=== PATIENT | female | born 1975 | race Caucasian/White ===

== ENCOUNTER 2017-12-25 12:19 | Emergency (ER) | payer OTHER ==
[~2017-12-25] VITALS: Ht 162.5 cm; Wt 68.0 kg
[~2017-12-25 12:19] MED LIST: ACIPHEX20 MG PO; ALBUTEROL0.09 MG/A2 IH; ASPIRIN PO; AUGMENTIN 875 M1 TA1 PO; BACTRIM DS 8001 TA1 PO; CEPHALEXIN500 MG PO; CHANTIX1 MG PO; CIPRO500 MG PO; CIPROFLOXACIN500 MG PO; COREG3.125 MG PO; CYCLOBENZAPRINE10 MG PO; DIFLUCAN150 MG PO; FAMILY PHARMAC0.4 MG PO; FLEXERIL10 MG PO; FLEXERIL5 MG PO; HYDROCODONE BIT1 T11 PO; IMDUR SA30 MG PO; K-Dur 20MEQ20 MEQ PO; KEFLEX500 MG PO; LEVEMIR100 U/ML SC; LEVOFLOXACIN500 MG PO; LOPRESSOR25 MG PO; MEDROL DOSEPAK4 MG PO; MOBIC15 MG PO; MOTRIN600 MG PO; MOTRIN800 MG PO; MULTIVITAMIN1 CTB PO; Metformin Hydr500 MG PO; NASCOBAL NAS; NEURONTIN300 MG PO; OMNICEF300 MG PO; PARAFON FORTE500 MG PO; PEN-VEE K500 MG PO; PEPCID20 MG PO; PERCOCET 325 MG1 TA2 PO; PERCOCET 325 MG1 TA3 PO; PERCOCET 325 MG1 TA7 PO; PLAVIX75 MG PO; PRAVACHOL80 MG PO; PREDNICOT10 MG PO; PREDNISONE20 MG PO; PYRIDIUM100 MG PO; PYRIDIUM200 MG PO; RANEXA1000 MG PO; ROBAXIN500 MG PO; TRAMADOL HCL50 MG PO; ULTRAM50 MG PO; URIBEL PO; VIBRAMYCIN100 MG PO; VICO10300 PO; VICODIN 5/500 505 MG PO; VICODIN HP 6601 TA1 PO; VOLTAREN50 M1 PO; ZOFRAN4 MG PO; ZOLOFT100 MG PO
[2017-12-25 12:26] VITALS: BP 116/66
[2017-12-25] MEDS ORDERED: Tobrex Ophth S2.5 ML OPH (12:41)
[2017-12-25] MEDS ORDERED: PREDNISONE10 MG PO (13:05)
== END 2017-12-25 14:24 | disposition home or self-care (01) ==
LOC: ED 12:19
DX: M25.561 Pain in right knee (principal); Z88.0 Allergy status to penicillin

== ENCOUNTER 2018-10-11 16:00 | Emergency (ER) | payer MEDICAID ==
[~2018-10-11] VITALS: Ht 162.5 cm; Wt 63.5 kg
[~2018-10-11 16:00] MED LIST changes: +PREDNISONE10 MG PO; +SEPTDS PO; +TYLENOL W/CODEI1 TA4 PO; +Tobrex Ophth S2.5 ML OPH
[2018-10-11 16:18] LABS: BASO % 0.4 % (0.0-1.0); EOS # 0.1 10*3/uL (0.0-0.4); EOS % 1.3 % (1.0-4.0); HEMATOCRIT 42.9 % (37.0-47.0); LYMPH # 2.3 10*3/uL (1.3-4.4); LYMPH % 20.4 % (27.0-41.0); MEAN CELL VOLUME 90.5 fl (81.0-99.0); MEAN CORPUSCULAR HGB 31.6 pg (27.0-31.0); MEAN PLATELET VOLUME 9.9 fl (9.6-12.3); MONO # 0.7 10*3/uL (0.1-1.0); NEUT # 7.9 10*3/uL (2.3-7.9); NEUT % 71.4 % (47.0-73.0); PLATELET COUNT AUTOMATED 269 10*3/uL (130-400); RED BLOOD COUNT 4.74 10*6/uL (4.10-5.10); RED CELL DISTRI WIDTH 12.9 % (0-14.5); WHITE BLOOD COUNT 11.1 10*3/uL (4.8-10.8)
[2018-10-11 16:36] LABS: ALBUMIN 3.8 gm/dl (3.1-4.5); ALKALINE PHOSPHATASE 63 U/L (45-117); BUN 5 mg/dl (7-24); CHLORIDE 107 mmol/L (98-107); CREATININE 0.79 mg/dL (0.55-1.02); POTASSIUM 3.4 mmol/L (3.5-5.1); SGOT/AST 14 IU/L (3-35); SGPT/ALT 28 U/L (12-78); SODIUM 141 mmol/L (136-145); TOTAL PROTEIN 7.2 gm/dL (6.4-8.2)
[2018-10-11 16:55] VITALS: BP 114/56
[2018-10-11 17:19] LABS: BILIRUBIN NEGATIVE (NEGATIVE); BLOOD NEGATIVE (NEGATIVE); CLARITY CLEAR (CLEAR); COLOR YELLOW (YELLOW); GLUCOSE NEGATIVE (NEGATIVE); KETONE NEGATIVE (NEGATIVE); LEUKO ESTERASE NEGATIVE (NEGATIVE); NITRITE NEGATIVE (NEGATIVE); SPECIFIC GRAVITY <= 1.005 (1.005-1.030); UROBILINOGEN 0.2 E.U./dl (0.2-1.0)
[2018-10-11 17:39] LABS: BACTERIA 2+
[2018-10-11 17:40] LABS: RBC 0-2 rbc/hpf (0-2)
== END 2018-10-11 17:53 | disposition home or self-care (01) ==
LOC: ED 16:00
PROVIDERS: Nurse Practitioner Family
DX: R10.9 Unspecified abdominal pain (principal); R03.0 Elevated blood-pressure reading, without diagnosis of hypertension; R11.0 Nausea; Z88.0 Allergy status to penicillin; Z87.442 Personal history of urinary calculi

== ENCOUNTER 2021-01-09 12:02 | Observation (INO) | payer SELFPAY ==
[~2021-01-09] VITALS: Ht 162.6 cm; Wt 72.6 kg
[2021-01-09 12:07] VITALS: BP 150/78
[2021-01-09 12:54] LABS: BASO % 0.3 % (0.0-1.0); EOS # 0.2 10*3/uL (0.0-0.4); EOS % 1.5 % (1.0-4.0); HEMATOCRIT 45.7 % (37.0-47.0); LYMPH # 1.5 10*3/uL (1.3-4.4); LYMPH % 14.5 % (27.0-41.0); MEAN CORPUSCULAR HGB 31.5 pg (27.0-31.0); MEAN CORPUSCULAR HGB CONC 34.6 g/dl (33.0-37.0); MEAN PLATELET VOLUME 10.4 fl (9.6-12.3); MONO # 0.5 10*3/uL (0.1-1.0); MONO % 4.9 % (3.0-9.0); NEUT # 7.9 10*3/uL (2.3-7.9); NEUT % 78.3 % (47.0-73.0); PLATELET COUNT AUTOMATED 294 10*3/uL (130-400); RED BLOOD COUNT 5.02 10*6/uL (4.10-5.10); RED CELL DISTRI WIDTH 12.5 % (0-14.5); WHITE BLOOD COUNT 10.1 10*3/uL (4.8-10.8)
[2021-01-09 13:10] LABS: ALBUMIN 3.8 gm/dl (3.1-4.5); ALKALINE PHOSPHATASE 95 U/L (45-117); BUN 5 mg/dl (7-24); CHLORIDE 111 mmol/L (98-107); CREATININE 0.79 mg/dL (0.55-1.02); LIPASE 64 U/L (73-393); POTASSIUM 3.7 mmol/L (3.5-5.1); SGOT/AST 12 IU/L (3-35); SGPT/ALT 60 U/L (12-78); SODIUM 140 mmol/L (136-145); TOTAL PROTEIN 7.1 gm/dL (6.4-8.2)
[2021-01-09 13:14] LABS: ACT PARTIAL THROMBO TIME 28.5 SECONDS (20.0-32.1)
[2021-01-09 13:18] LABS: BETA-HCG, QUANT < 1.0 mIU/mL (1-3); TROPONIN I < 0.015 ng/ml (<0.045)
[2021-01-09 13:23] LABS: BILIRUBIN Negative (Negative); BLOOD Negative (Negative); CLARITY Clear (Clear); COLOR Yellow (Yellow); GLUCOSE Negative (Negative); KETONE Trace (Negative); LEUKO ESTERASE Negative (Negative); NITRITE Negative (Negative); PH 6.5 (4.5-8.0); SPECIFIC GRAVITY 1.015 (1.001-1.030)
[2021-01-09 13:39] LABS: BACTERIA 2+; MUCOUS 1+
[2021-01-09 15:31] VITALS: BP 115/49
[2021-01-09 18:48] VITALS: BP 115/55
[2021-01-09 19:53] VITALS: BP 113/53
[2021-01-09 22:30] VITALS: BP 90/50
[2021-01-10 05:27] LABS: ALBUMIN 2.7 gm/dl (3.1-4.5); BUN 8 mg/dl (7-24); CHLORIDE 113 mmol/L (98-107); CHOLESTEROL 120 mg/dL (<200); CREATININE 0.57 mg/dL (0.55-1.02); POTASSIUM 3.5 mmol/L (3.5-5.1); SGOT/AST 5 IU/L (3-35); SGPT/ALT 41 U/L (12-78); SODIUM 143 mmol/L (136-145)
[2021-01-10 05:34] LABS: ALKALINE PHOSPHATASE 69 U/L (45-117); FREE T4 1.02 ng/dl (0.76-1.46); HDL CHOLESTEROL 28 mg/dl (40-60); LDL CHOLESTEROL 62 mg/dL (9-159); TOTAL PROTEIN 5.4 gm/dL (6.4-8.2); TRIGLYCERIDES 152 mg/dl (<150); VLDL CHOLESTEROL 30 mg/dL (6-40)
[2021-01-10 06:16] LABS: BASO % 0.4 % (0.0-1.0); EOS # 0.2 10*3/uL (0.0-0.4); EOS % 2.6 % (1.0-4.0); HEMATOCRIT 39.4 % (37.0-47.0); LYMPH # 1.8 10*3/uL (1.3-4.4); LYMPH % 25.2 % (27.0-41.0); MEAN CELL VOLUME 91.6 fl (81.0-99.0); MEAN CORPUSCULAR HGB 30.7 pg (27.0-31.0); MEAN CORPUSCULAR HGB CONC 33.5 g/dl (33.0-37.0); MEAN PLATELET VOLUME 10.7 fl (9.6-12.3); MONO # 0.6 10*3/uL (0.1-1.0); MONO % 7.8 % (3.0-9.0); NEUT # 4.7 10*3/uL (2.3-7.9); NEUT % 63.6 % (47.0-73.0); PLATELET COUNT AUTOMATED 268 10*3/uL (130-400); RED CELL DISTRI WIDTH 12.4 % (0-14.5); WHITE BLOOD COUNT 7.3 10*3/uL (4.8-10.8)
[2021-01-10 06:17] LABS: ACT PARTIAL THROMBO TIME 29.4 SECONDS (20.0-32.1)
[2021-01-10 07:00] LABS: VITAMIN D, 25-HYDROXY 26.3 ng/mL (30-100)
[2021-01-10 08:00] VITALS: BP 110/71
[2021-01-10] MEDS ORDERED: FLOMAX0.4 MG PO (11:21)
[2021-01-10] MEDS ORDERED: HYDROCODONE-AC1 EAC1 PO (11:21)
[2021-01-10] MEDS ORDERED: ZOFRAN4 MG PO (11:21)
== END 2021-01-10 12:25 | disposition home or self-care (01) ==
LOC: ED 12:02 → 4E 19:01 → EDHOLD 19:01 → 4E 20:44
PROVIDERS: Emergency Medicine; Internal Medicine; ADMIT Internal Medicine; ATTEND Internal Medicine
DX: K50.919 Crohn's disease, unspecified, with unspecified complications (principal); L40.9 Psoriasis, unspecified; N20.0 Calculus of kidney; E87.8 Other disorders of electrolyte and fluid balance, not elsewhere classified; R73.9 Hyperglycemia, unspecified; R79.82 Elevated C-reactive protein (CRP); R00.0 Tachycardia, unspecified; F17.210 Nicotine dependence, cigarettes, uncomplicated; Z79.899 Other long term (current) drug therapy

== ENCOUNTER 2022-04-22 16:32 | Emergency (ER) | payer SELFPAY ==
[~2022-04-22] VITALS: Ht 162.5 cm; Wt 72.6 kg
[~2022-04-22 16:32] MED LIST changes: +FLOMAX0.4 MG PO; +HYDROCODONE-AC1 EAC1 PO
[2022-04-22 16:41] VITALS: BP 142/72
[2022-04-22] MEDS ORDERED: PREDNISONE20 M1 PO (21:18)
[2022-04-22] MEDS ORDERED: PROVENTIL HFA6.7 GM INH (21:18)
== END 2022-04-22 21:43 | disposition home or self-care (01) ==
LOC: ED 16:32
DX: U07.1 COVID-19 (principal); F17.200 Nicotine dependence, unspecified, uncomplicated; Z90.49 Acquired absence of other specified parts of digestive tract; Z79.899 Other long term (current) drug therapy; Z88.0 Allergy status to penicillin

== ENCOUNTER 2023-08-21 14:39 | Emergency (ER) | payer OTHER ==
[~2023-08-21] VITALS: Ht 162.5 cm; Wt 59.0 kg
[~2023-08-21 14:39] MED LIST changes: +PREDNISONE20 M1 PO; +PROVENTIL HFA6.7 GM INH
[2023-08-21 15:26] VITALS: BP 150/78
== END 2023-08-21 17:54 | disposition left against medical advice (07) ==
LOC: ED 14:39
DX: J02.9 Acute pharyngitis, unspecified (principal); M79.10 Myalgia, unspecified site; R50.9 Fever, unspecified; R05.9 Cough, unspecified; R51.9 Headache, unspecified; Z88.0 Allergy status to penicillin; Z53.21 Procedure and treatment not carried out due to patient leaving prior to being seen by health care provider

== ENCOUNTER → 2023-09-03 | Outpatient (CLI) | payer OTHER | END | disposition home or self-care (01) | LOC: RAD 16:36 | PROVIDERS: ATTEND Nurse Practitioner Family | DX: U07.1 COVID-19 (principal) ==

== ENCOUNTER 2024-02-01 14:03 | Emergency (ER) | payer OTHER ==
[~2024-02-01] VITALS: Ht 162.5 cm; Wt 59.0 kg
[2024-02-01 14:24] VITALS: BP 152/85
[2024-02-01] MEDS ORDERED: MORPHINE Sulfate 2 MG/ML SYR IV ONE ×3 (14:45→17:50)
[2024-02-01] MEDS ORDERED: SODIUM CHLORIDE 0.9% 1,000 ML IV ONE ×2 (14:45→16:25)
[2024-02-01] MEDS ORDERED: Ondansetron Hydrochloride 4 MG/2 ML VIAL IV ONE (14:45)
[2024-02-01 14:54] LABS: BASO % 0.2 % (0.0-1.0); EOS # 0.1 10*3/uL (0.0-0.4); EOS % 0.7 % (1.0-4.0); HEMATOCRIT 46.8 % (37.0-47.0); LYMPH # 1.4 10*3/uL (1.3-4.4); LYMPH % 8.9 % (27.0-41.0); MEAN CELL VOLUME 91.6 fl (81.0-99.0); MEAN CORPUSCULAR HGB 30.9 pg (27.0-31.0); MEAN CORPUSCULAR HGB CONC 33.8 g/dl (33.0-37.0); MEAN PLATELET VOLUME 9.9 fl (9.6-12.3); MONO # 0.8 10*3/uL (0.1-1.0); MONO % 5.3 % (3.0-9.0); NEUT # 13.4 10*3/uL (2.3-7.9); NEUT % 84.6 % (47.0-73.0); PLATELET COUNT AUTOMATED 322 10*3/uL (130-400); RED BLOOD COUNT 5.11 10*6/uL (4.10-5.10); WHITE BLOOD COUNT 15.9 10*3/uL (4.8-10.8)
[2024-02-01 15:11] LABS: BUN 6 mg/dl (9-23); CHLORIDE 104 mmol/L (98-107); POTASSIUM 3.4 mmol/L (3.4-5.1)
[2024-02-01] MEDS ORDERED: IOHEXOL 300 MG/ML 100 ML VIAL IV ONE (15:20)
[2024-02-01] MEDS ORDERED: IOHEXOL 300 MG/ML 100 ML VIAL ONE (15:33)
[2024-02-01 15:57] LABS: BILIRUBIN Negative (Negative); BLOOD Negative (Negative); CLARITY Cloudy (Clear); COLOR Yellow (Yellow); GLUCOSE Negative (Negative); KETONE Negative (Negative); LEUKO ESTERASE 2+ (Negative); NITRITE Positive (Negative); PH 7.5 (4.5-8.0); SPECIFIC GRAVITY <= 1.005 (1.001-1.030); UROBILINOGEN 0.2 E.U./dl (0.0-1.0)
[2024-02-01 16:09] LABS: BACTERIA 2+; EPITHELIAL CELLS 16-20; RBC 0-2 rbc/hpf (0-2); WBC 21-30 wbc/hpf (0-5)
[2024-02-01] MEDS ORDERED: Clindamycin Phosphate 50 ML IV ONE (16:30)
[2024-02-01] MEDS ORDERED: CLINDAMYCIN HC300 MG PO (17:53)
[2024-02-01] MEDS ORDERED: CIPRO500 MG PO (17:53)
[2024-02-01] MEDS ORDERED: PHENERGAN25 M3 PO (17:55)
[2024-02-01] MEDS ORDERED: PERCOCET 5-3251 EACH PO (17:55)
== END 2024-02-01 18:38 | disposition home or self-care (01) ==
LOC: ED 14:03
PROVIDERS: Nurse Practitioner Family
DX: K61.0 Anal abscess (principal); N39.0 Urinary tract infection, site not specified; Z88.0 Allergy status to penicillin; Z90.710 Acquired absence of both cervix and uterus; Z98.890 Other specified postprocedural states; Z90.11 Acquired absence of right breast and nipple; Z90.49 Acquired absence of other specified parts of digestive tract; F17.200 Nicotine dependence, unspecified, uncomplicated

== ENCOUNTER 2024-02-02 19:32 | Inpatient (IN) | payer OTHER ==
[~2024-02-02] VITALS: Ht 162.6 cm; Wt 58.6 kg
[~2024-02-02 19:32] MED LIST changes: +CLINDAMYCIN HC300 MG PO; +PERCOCET 5-3251 EACH PO; +PHENERGAN25 M3 PO
[2024-02-02 20:18] VITALS: BP 130/66
[2024-02-02] MEDS ORDERED: MORPHINE Sulfate 2 MG/ML SYR IV ONE (20:30)
[2024-02-02] MEDS ORDERED: SODIUM CHLORIDE 0.9% 1,000 ML IV ONE (20:30)
[2024-02-02 20:42] LABS: BASO % 0.2 % (0.0-1.0); EOS # 0.2 10*3/uL (0.0-0.4); EOS % 1.2 % (1.0-4.0); HEMATOCRIT 42.8 % (37.0-47.0); LYMPH # 1.5 10*3/uL (1.3-4.4); LYMPH % 9.4 % (27.0-41.0); MEAN CELL VOLUME 90.7 fl (81.0-99.0); MEAN CORPUSCULAR HGB 31.1 pg (27.0-31.0); MEAN CORPUSCULAR HGB CONC 34.3 g/dl (33.0-37.0); MEAN PLATELET VOLUME 9.6 fl (9.6-12.3); MONO % 6.1 % (3.0-9.0); NEUT # 13.6 10*3/uL (2.3-7.9); NEUT % 82.7 % (47.0-73.0); PLATELET COUNT AUTOMATED 290 10*3/uL (130-400); RED BLOOD COUNT 4.72 10*6/uL (4.10-5.10); RED CELL DISTRI WIDTH 12.8 % (0-14.5); WHITE BLOOD COUNT 16.5 10*3/uL (4.8-10.8)
[2024-02-02 21:04] LABS: ALKALINE PHOSPHATASE 87 U/L (46-116); CHLORIDE 106 mmol/L (98-107); POTASSIUM 3.3 mmol/L (3.4-5.1); SGPT/ALT 11 U/L (5-49)
[2024-02-02 21:12] LABS: BUN < 5 mg/dl (9-23)
[2024-02-02] MEDS ORDERED: HYDROmorphONE Hydrochloride 0.5 MG/0.5 ML SYRINGE IV ONE (21:30)
[2024-02-02] MEDS ORDERED: Acetaminophen/Hydrocodone 5 MG/325 MG TABLET PO PRN (22:00)
[2024-02-02] MEDS ORDERED: MORPHINE Sulfate 2 MG/ML SYR IV PRN (22:00)
[2024-02-02] MEDS ORDERED: BISACODYL 5 MG TAB PO PRN (22:00)
[2024-02-02] MEDS ORDERED: ACETAMINOPHEN 325 MG TAB PO PRN (22:00)
[2024-02-02] MEDS ORDERED: Ondansetron Hydrochloride 4 MG/2 ML VIAL IV PRN (22:00)
[2024-02-02] MEDS ORDERED: BISACODYL 10 MG SUPP R PRN (22:00)
[2024-02-02] MEDS ORDERED: Magnesium Hydroxide 30 ML UDC PO PRN (22:00)
[2024-02-02] MEDS ORDERED: TEMAZEPAM 15 MG CAP PO PRN (22:00)
[2024-02-02] MEDS ORDERED: ACETAMINOPHEN 650 MG SUPP R PRN (22:00)
[2024-02-02] MEDS ORDERED: Ketorolac Tromethamine 15 MG/ML VIAL IV PRN (22:25)
[2024-02-02] MEDS ORDERED: POTASSIUM CHLORIDE 20 MEQ TAB PO ONE (23:35)
[2024-02-03] MEDS ORDERED: CIPROFLOXACIN 200 ML IV SCH
[2024-02-03] MEDS ORDERED: METRONIDAZOLE 100 ML IV SCH
[2024-02-03 03:12] VITALS: BP 137/68
[2024-02-03 04:11] LABS: BASO % 0.2 % (0.0-1.0); EOS # 0.2 10*3/uL (0.0-0.4); EOS % 1.3 % (1.0-4.0); HEMATOCRIT 39.5 % (37.0-47.0); LYMPH # 1.2 10*3/uL (1.3-4.4); LYMPH % 7.8 % (27.0-41.0); MEAN CELL VOLUME 91.2 fl (81.0-99.0); MEAN CORPUSCULAR HGB 30.7 pg (27.0-31.0); MEAN CORPUSCULAR HGB CONC 33.7 g/dl (33.0-37.0); MEAN PLATELET VOLUME 10.2 fl (9.6-12.3); MONO # 0.9 10*3/uL (0.1-1.0); MONO % 6.4 % (3.0-9.0); NEUT # 12.3 10*3/uL (2.3-7.9); NEUT % 83.9 % (47.0-73.0); PLATELET COUNT AUTOMATED 276 10*3/uL (130-400); RED BLOOD COUNT 4.33 10*6/uL (4.10-5.10); RED CELL DISTRI WIDTH 12.9 % (0-14.5); WHITE BLOOD COUNT 14.7 10*3/uL (4.8-10.8)
[2024-02-03 04:28] LABS: ACT PARTIAL THROMBO TIME 33.8 SECONDS (20.0-32.1)
[2024-02-03 04:36] LABS: ALKALINE PHOSPHATASE 78 U/L (46-116); CHLORIDE 106 mmol/L (98-107); CHOLESTEROL 125 mg/dL (<200); FREE T4 1.09 ng/dl (0.89-1.76); LDL CHOLESTEROL 74 mg/dL (9-159); POTASSIUM 2.9 mmol/L (3.4-5.1); SGPT/ALT 10 U/L (5-49); TOTAL PROTEIN 6.2 gm/dL (6.0-8.0); TRIGLYCERIDES 100 mg/dl (<150)
[2024-02-03 04:40] LABS: BUN < 5 mg/dl (9-23)
[2024-02-03 06:03] VITALS: BP 128/62
[2024-02-03 06:42] LABS: VITAMIN D, 25-HYDROXY 17.2 ng/mL (30-100)
[2024-02-03 08:00] VITALS: BP 111/68
[2024-02-03] MEDS ORDERED: Enoxaparin Sodium 40 MG/0.4 ML SYR SC SCH (10:00)
[2024-02-03] MEDS ORDERED: Ketorolac Tromethamine 30 MG/ML VIAL IV PRN (10:58)
[2024-02-03] MEDS ORDERED: POTASSIUM CHLORIDE IN WATER 100 ML IV SCH (12:00)
[2024-02-03] MEDS ORDERED: MORPHINE Sulfate 2 MG/ML SYR IV ONE (12:15)
[2024-02-03 13:50] VITALS: BP 102/55
[2024-02-03] MEDS ORDERED: POTASSIUM CHLORIDE 20 MEQ TAB PO ONE (15:40)
[2024-02-03 16:00] VITALS: BP 102/55
[2024-02-03 20:00] VITALS: BP 104/54
[2024-02-04] VITALS: BP 104/72
[2024-02-04 06:31] LABS: BASO % 0.2 % (0.0-1.0); EOS # 0.2 10*3/uL (0.0-0.4); EOS % 2.3 % (1.0-4.0); HEMATOCRIT 40.8 % (37.0-47.0); LYMPH # 1.1 10*3/uL (1.3-4.4); MEAN CELL VOLUME 92.1 fl (81.0-99.0); MEAN CORPUSCULAR HGB 31.2 pg (27.0-31.0); MEAN CORPUSCULAR HGB CONC 33.8 g/dl (33.0-37.0); MEAN PLATELET VOLUME 10.3 fl (9.6-12.3); MONO # 0.7 10*3/uL (0.1-1.0); MONO % 6.7 % (3.0-9.0); NEUT # 8.1 10*3/uL (2.3-7.9); NEUT % 79.3 % (47.0-73.0); PLATELET COUNT AUTOMATED 262 10*3/uL (130-400); RED BLOOD COUNT 4.43 10*6/uL (4.10-5.10); RED CELL DISTRI WIDTH 12.7 % (0-14.5); WHITE BLOOD COUNT 10.3 10*3/uL (4.8-10.8)
[2024-02-04 06:49] LABS: BUN 7 mg/dl (9-23); CHLORIDE 107 mmol/L (98-107); POTASSIUM 3.5 mmol/L (3.4-5.1)
[2024-02-04 08:00] VITALS: BP 117/57
[2024-02-04] MEDS ORDERED: Cholecalciferol 2,000 UNIT TABLET (50 MCG) PO SCH (10:00)
[2024-02-04] MEDS ORDERED: IOHEXOL 300 MG/ML 100 ML VIAL IV ONE (11:20)
[2024-02-04 12:00] VITALS: BP 101/54
[2024-02-04 16:00] VITALS: BP 120/70
[2024-02-04 20:00] VITALS: BP 119/47
[2024-02-05] VITALS: BP 106/72
[2024-02-05 06:28] LABS: BASO # 0.1 10*3/uL (0.0-0.1); BASO % 0.8 % (0.0-1.0); EOS # 0.4 10*3/uL (0.0-0.4); EOS % 5.4 % (1.0-4.0); HEMATOCRIT 38.6 % (37.0-47.0); LYMPH # 1.6 10*3/uL (1.3-4.4); LYMPH % 24.5 % (27.0-41.0); MEAN CELL VOLUME 91.3 fl (81.0-99.0); MEAN CORPUSCULAR HGB 30.7 pg (27.0-31.0); MEAN CORPUSCULAR HGB CONC 33.7 g/dl (33.0-37.0); MEAN PLATELET VOLUME 10.2 fl (9.6-12.3); MONO # 0.7 10*3/uL (0.1-1.0); MONO % 9.8 % (3.0-9.0); NEUT # 3.9 10*3/uL (2.3-7.9); NEUT % 58.7 % (47.0-73.0); PLATELET COUNT AUTOMATED 295 10*3/uL (130-400); RED BLOOD COUNT 4.23 10*6/uL (4.10-5.10); RED CELL DISTRI WIDTH 12.8 % (0-14.5); WHITE BLOOD COUNT 6.7 10*3/uL (4.8-10.8)
[2024-02-05 06:36] LABS: BUN 7 mg/dl (9-23); CHLORIDE 106 mmol/L (98-107); POTASSIUM 3.7 mmol/L (3.4-5.1)
[2024-02-05 08:00] VITALS: BP 112/59
[2024-02-05 12:00] VITALS: BP 122/51
[2024-02-05] MEDS ORDERED: VITAMIN D350 MCG PO (13:15)
[2024-02-05] MEDS ORDERED: BACTRIM 400-801 EACH PO (13:15)
[2024-02-05] MEDS ORDERED: PERCOCET 5-3251 EACH PO (13:15)
== END 2024-02-05 13:55 | disposition home health service (06) | DRG 394 ==
LOC: ED 19:32 → EDHOLD 21:40 → 4E 21:40
PROVIDERS: Physician Assistant Medical; Student in an Organized Health Care Education/Training Program; ADMIT Internal Medicine; ATTEND Internal Medicine
PROC: 0D9Q3ZZ Drainage of Anus, Percutaneous Approach (ICD-10-PCS; principal; 2024-02-03)
DX: K61.0 Anal abscess (principal); E44.1 Mild protein-calorie malnutrition; K50.90 Crohn's disease, unspecified, without complications; F17.210 Nicotine dependence, cigarettes, uncomplicated; R73.9 Hyperglycemia, unspecified; D72.829 Elevated white blood cell count, unspecified; E87.6 Hypokalemia; L40.9 Psoriasis, unspecified; E55.9 Vitamin D deficiency, unspecified; B96.1 Klebsiella pneumoniae [K. pneumoniae] as the cause of diseases classified elsewhere; Z88.0 Allergy status to penicillin; Z90.711 Acquired absence of uterus with remaining cervical stump; Z90.49 Acquired absence of other specified parts of digestive tract; Z82.49 Family history of ischemic heart disease and other diseases of the circulatory system; Z87.442 Personal history of urinary calculi; Z71.6 Tobacco abuse counseling; Z68.22 Body mass index [BMI] 22.0-22.9, adult

== ENCOUNTER 2024-02-11 18:54 | Emergency (ER) | payer OTHER ==
[~2024-02-11] VITALS: Ht 162.5 cm; Wt 58.5 kg
[~2024-02-11 18:54] MED LIST changes: +BACTRIM 400-801 EACH PO; +VITAMIN D350 MCG PO
[2024-02-11] MEDS ORDERED: BACTRIM 400-801 EACH PO (19:09)
[2024-02-11 19:34] LABS: BASO # 0.1 10*3/uL (0.0-0.1); BASO % 0.5 % (0.0-1.0); EOS # 0.2 10*3/uL (0.0-0.4); EOS % 1.3 % (1.0-4.0); LYMPH # 2.4 10*3/uL (1.3-4.4); LYMPH % 21.1 % (27.0-41.0); MEAN CELL VOLUME 91.8 fl (81.0-99.0); MEAN CORPUSCULAR HGB 30.7 pg (27.0-31.0); MEAN CORPUSCULAR HGB CONC 33.4 g/dl (33.0-37.0); MEAN PLATELET VOLUME 9.5 fl (9.6-12.3); MONO # 0.6 10*3/uL (0.1-1.0); MONO % 5.4 % (3.0-9.0); NEUT # 7.9 10*3/uL (2.3-7.9); NEUT % 71.3 % (47.0-73.0); PLATELET COUNT AUTOMATED 374 10*3/uL (130-400); RED BLOOD COUNT 5.12 10*6/uL (4.10-5.10); RED CELL DISTRI WIDTH 13.1 % (0-14.5); WHITE BLOOD COUNT 11.2 10*3/uL (4.8-10.8)
[2024-02-11 19:52] LABS: BUN 7 mg/dl (9-23); CHLORIDE 104 mmol/L (98-107); POTASSIUM 3.9 mmol/L (3.4-5.1)
[2024-02-11] MEDS ORDERED: Acetaminophen/Hydrocodone 5 MG/325 MG TABLET PO ONE (20:55)
[2024-02-11] MEDS ORDERED: Ondansetron Hydrochloride 4 MG TAB SL ONE (20:55)
[2024-02-11] MEDS ORDERED: IOHEXOL 300 MG/ML 100 ML VIAL IV ONE (21:00)
[2024-02-11] MEDS ORDERED: HYDROmorphONE Hydrochloride 1 MG/ML SYR IV ONE (23:45)
[2024-02-12 00:16] VITALS: BP 112/80
[2024-02-12] MEDS ORDERED: METRONIDAZOLE 500 MG TAB PO ONE (01:05)
[2024-02-12] MEDS ORDERED: Acetaminophen/Hydrocodone 5 MG/325 MG TABLET PO ONE (01:05)
[2024-02-12] MEDS ORDERED: METRONIDAZOLE500 M1 PO (01:15)
[2024-02-12] MEDS ORDERED: HYDROCODONE-AC1 EAC1 PO (01:15)
== END 2024-02-12 01:22 | disposition home or self-care (01) ==
LOC: ED 18:54
PROVIDERS: Internal Medicine
DX: K61.0 Anal abscess (principal); F12.90 Cannabis use, unspecified, uncomplicated; F17.200 Nicotine dependence, unspecified, uncomplicated; Z88.0 Allergy status to penicillin; Z90.49 Acquired absence of other specified parts of digestive tract; Z98.890 Other specified postprocedural states; Z90.711 Acquired absence of uterus with remaining cervical stump; Z90.11 Acquired absence of right breast and nipple

== ENCOUNTER 2024-03-02 18:43 | Emergency (ER) | payer OTHER ==
[~2024-03-02] VITALS: Ht 162.5 cm; Wt 59.0 kg
[~2024-03-02 18:43] MED LIST changes: +METRONIDAZOLE500 M1 PO
[2024-03-02 18:58] VITALS: BP 139/75
[2024-03-02] MEDS ORDERED: SODIUM CHLORIDE 0.9% 1,000 ML IV ONE (19:10)
[2024-03-02] MEDS ORDERED: Ketorolac Tromethamine 30 MG/ML VIAL IV ONE (19:10)
[2024-03-02 19:26] LABS: BASO % 0.5 % (0.0-1.0); EOS # 0.1 10*3/uL (0.0-0.4); EOS % 1.5 % (1.0-4.0); HEMATOCRIT 45.1 % (37.0-47.0); LYMPH # 1.5 10*3/uL (1.3-4.4); MEAN CELL VOLUME 92.6 fl (81.0-99.0); MEAN CORPUSCULAR HGB CONC 33.5 g/dl (33.0-37.0); MEAN PLATELET VOLUME 10.2 fl (9.6-12.3); MONO # 0.4 10*3/uL (0.1-1.0); MONO % 4.7 % (3.0-9.0); NEUT % 74.1 % (47.0-73.0); PLATELET COUNT AUTOMATED 259 10*3/uL (130-400); RED BLOOD COUNT 4.87 10*6/uL (4.10-5.10); RED CELL DISTRI WIDTH 12.9 % (0-14.5); WHITE BLOOD COUNT 8.1 10*3/uL (4.8-10.8)
[2024-03-02 19:46] LABS: ALKALINE PHOSPHATASE 82 U/L (46-116); BUN 7 mg/dl (9-23); CHLORIDE 105 mmol/L (98-107); POTASSIUM 3.6 mmol/L (3.4-5.1); SGPT/ALT 23 U/L (5-49); TOTAL PROTEIN 6.7 gm/dL (6.0-8.0)
[2024-03-02 20:05] LABS: BILIRUBIN Negative (Negative); BLOOD Negative (Negative); CLARITY Clear (Clear); COLOR Yellow (Yellow); GLUCOSE Negative (Negative); KETONE Negative (Negative); LEUKO ESTERASE Negative (Negative); NITRITE Negative (Negative); PH 6.5 (4.5-8.0); SPECIFIC GRAVITY <= 1.005 (1.001-1.030); UROBILINOGEN 0.2 E.U./dl (0.0-1.0)
[2024-03-02 20:12] LABS: BACTERIA 1+
[2024-03-02] MEDS ORDERED: Ondansetron Hydrochloride 4 MG/2 ML VIAL IV ONE (21:40)
[2024-03-02] MEDS ORDERED: MAGNESIUM CITRATE 296 ML BOT PO ONE (22:15)
== END 2024-03-02 22:16 | disposition home or self-care (01) ==
LOC: ED 18:43
PROVIDERS: Physician Assistant Medical
DX: K59.00 Constipation, unspecified (principal); M54.50 Low back pain, unspecified; F17.200 Nicotine dependence, unspecified, uncomplicated; Z88.0 Allergy status to penicillin; Z90.711 Acquired absence of uterus with remaining cervical stump; Z90.49 Acquired absence of other specified parts of digestive tract

== ENCOUNTER 2024-03-08 12:48 | Emergency (ER) | payer OTHER ==
[~2024-03-08] VITALS: Ht 162.5 cm; Wt 59.0 kg
[2024-03-08 12:56] VITALS: BP 125/91
== END 2024-03-08 15:26 | disposition home or self-care (01) ==
LOC: ED 12:48
DX: F17.200 Nicotine dependence, unspecified, uncomplicated (principal); Z88.0 Allergy status to penicillin; Z90.710 Acquired absence of both cervix and uterus; Z90.49 Acquired absence of other specified parts of digestive tract; Z98.890 Other specified postprocedural states

== ENCOUNTER 2024-04-24 13:35 | Emergency (ER) | payer OTHER ==
[~2024-04-24] VITALS: Ht 170.1 cm; Wt 54.4 kg
[2024-04-24] MEDS ORDERED: HYDROCODONE-AC1 EAC1 PO (14:08)
[2024-04-24] MEDS ORDERED: VIBRAMYCIN100 MG PO (14:08)
[2024-04-24 14:09] VITALS: BP 164/94
[2024-04-24] MEDS ORDERED: Acetaminophen/Hydrocodone 5 MG/325 MG TABLET PO ONE (14:10)
[2024-04-24] MEDS ORDERED: Doxycycline Hyclate 100 MG CAP PO ONE (14:10)
== END 2024-04-24 14:32 | disposition home or self-care (01) ==
LOC: ED 13:35
DX: L02.214 Cutaneous abscess of groin (principal); R73.9 Hyperglycemia, unspecified; E87.6 Hypokalemia; F12.90 Cannabis use, unspecified, uncomplicated; F17.200 Nicotine dependence, unspecified, uncomplicated; Z88.0 Allergy status to penicillin; Z87.442 Personal history of urinary calculi; Z90.711 Acquired absence of uterus with remaining cervical stump; Z90.49 Acquired absence of other specified parts of digestive tract; Z98.890 Other specified postprocedural states; Z90.11 Acquired absence of right breast and nipple

== ENCOUNTER → 2024-06-22 | Outpatient (CLI) | payer OTHER | END | disposition home or self-care (01) | LOC: LAB 17:47 | PROVIDERS: ATTEND Nurse Practitioner Family | DX: R68.89 Other general symptoms and signs (principal); Z20.822 Contact with and (suspected) exposure to COVID-19 ==

== ENCOUNTER → 2024-06-23 | Outpatient (CLI) | payer OTHER | END | disposition home or self-care (01) | LOC: LAB 14:35 | PROVIDERS: ATTEND Nurse Practitioner Family | DX: J02.9 Acute pharyngitis, unspecified (principal) ==

== ENCOUNTER 2024-06-28 14:55 | Emergency (ER) | payer OTHER ==
[~2024-06-28] VITALS: Ht 162.5 cm; Wt 63.5 kg
[2024-06-28 15:43] VITALS: BP 142/75
[2024-06-28] MEDS ORDERED: Ondansetron Hydrochloride 4 MG/2 ML VIAL IV ONE (16:00)
[2024-06-28] MEDS ORDERED: HYDROmorphONE Hydrochloride 0.5 MG/0.5 ML SYRINGE IV ONE (16:00)
[2024-06-28] MEDS ORDERED: SODIUM CHLORIDE 0.9% 1,000 ML IV ONE (16:00)
[2024-06-28 16:03] LABS: BASO % 0.4 % (0.0-1.0); EOS # 0.1 10*3/uL (0.0-0.4); EOS % 1.1 % (1.0-4.0); HEMATOCRIT 46.4 % (37.0-47.0); LYMPH # 1.5 10*3/uL (1.3-4.4); LYMPH % 21.1 % (27.0-41.0); MEAN CELL VOLUME 90.3 fl (81.0-99.0); MEAN CORPUSCULAR HGB 30.5 pg (27.0-31.0); MEAN CORPUSCULAR HGB CONC 33.8 g/dl (33.0-37.0); MEAN PLATELET VOLUME 9.7 fl (9.6-12.3); MONO # 0.5 10*3/uL (0.1-1.0); MONO % 6.5 % (3.0-9.0); NEUT # 5.1 10*3/uL (2.3-7.9); NEUT % 70.6 % (47.0-73.0); PLATELET COUNT AUTOMATED 273 10*3/uL (130-400); RED BLOOD COUNT 5.14 10*6/uL (4.10-5.10); RED CELL DISTRI WIDTH 13.1 % (0-14.5); WHITE BLOOD COUNT 7.3 10*3/uL (4.8-10.8)
[2024-06-28 16:07] LABS: BILIRUBIN Negative (Negative); BLOOD Negative (Negative); CLARITY Clear (Clear); COLOR Yellow (Yellow); GLUCOSE Negative (Negative); KETONE Negative (Negative); LEUKO ESTERASE Negative (Negative); NITRITE Negative (Negative); PH 6.5 (4.5-8.0); SPECIFIC GRAVITY <= 1.005 (1.001-1.030); UROBILINOGEN 0.2 E.U./dl (0.0-1.0)
[2024-06-28 16:20] LABS: RBC 0-2 rbc/hpf (0-2); WBC 0-2 wbc/hpf (0-5)
[2024-06-28 16:27] LABS: ALKALINE PHOSPHATASE 75 U/L (46-116); CHLORIDE 107 mmol/L (98-107); LIPASE 38 U/L (12-53); POTASSIUM 3.9 mmol/L (3.4-5.1); SGPT/ALT 21 U/L (5-49); TOTAL PROTEIN 7.1 gm/dL (6.0-8.0)
[2024-06-28 16:28] LABS: BUN < 5 mg/dl (9-23)
[2024-06-28] MEDS ORDERED: Ketorolac Tromethamine 30 MG/ML VIAL IV ONE (17:15)
== END 2024-06-28 20:51 | disposition home or self-care (01) ==
LOC: ED 14:55
PROVIDERS: Nurse Practitioner Family
DX: R10.84 Generalized abdominal pain (principal); Z20.822 Contact with and (suspected) exposure to COVID-19; R11.0 Nausea; E87.6 Hypokalemia; F12.90 Cannabis use, unspecified, uncomplicated; F17.200 Nicotine dependence, unspecified, uncomplicated; Z88.0 Allergy status to penicillin; Z90.49 Acquired absence of other specified parts of digestive tract; Z90.711 Acquired absence of uterus with remaining cervical stump; Z98.890 Other specified postprocedural states

== ENCOUNTER 2024-07-20 13:32 | Emergency (ER) | payer OTHER ==
[~2024-07-20] VITALS: Ht 162.5 cm; Wt 59.4 kg
[2024-07-20 13:52] VITALS: BP 149/69
[2024-07-20] MEDS ORDERED: Ketorolac Tromethamine 30 MG/ML VIAL IV ONE (14:45)
[2024-07-20 14:59] LABS: BASO % 0.3 % (0.0-1.0); EOS # 0.1 10*3/uL (0.0-0.4); EOS % 0.8 % (1.0-4.0); HEMATOCRIT 46.7 % (37.0-47.0); LYMPH # 1.2 10*3/uL (1.3-4.4); LYMPH % 12.1 % (27.0-41.0); MEAN CORPUSCULAR HGB 30.8 pg (27.0-31.0); MEAN CORPUSCULAR HGB CONC 34.3 g/dl (33.0-37.0); MEAN PLATELET VOLUME 9.7 fl (9.6-12.3); MONO # 0.5 10*3/uL (0.1-1.0); MONO % 5.1 % (3.0-9.0); NEUT # 8.3 10*3/uL (2.3-7.9); NEUT % 81.3 % (47.0-73.0); PLATELET COUNT AUTOMATED 269 10*3/uL (130-400); RED BLOOD COUNT 5.19 10*6/uL (4.10-5.10); RED CELL DISTRI WIDTH 13.5 % (0-14.5); WHITE BLOOD COUNT 10.2 10*3/uL (4.8-10.8)
[2024-07-20] MEDS ORDERED: IOHEXOL 300 MG/ML 100 ML VIAL IV ONE (15:15)
[2024-07-20] MEDS ORDERED: IOHEXOL 9 MG/ML (IODINE) ORAL SOLUTION PO ONE (15:15)
[2024-07-20 15:22] LABS: ALKALINE PHOSPHATASE 78 U/L (46-116); BUN 6 mg/dl (9-23); CHLORIDE 105 mmol/L (98-107); LIPASE 30 U/L (12-53); SGPT/ALT 39 U/L (5-49); TOTAL PROTEIN 6.4 gm/dL (6.0-8.0)
[2024-07-20 15:27] LABS: BILIRUBIN Negative (Negative); BLOOD Negative (Negative); CLARITY Clear (Clear); COLOR Yellow (Yellow); GLUCOSE Negative (Negative); KETONE Negative (Negative); LEUKO ESTERASE Negative (Negative); NITRITE Negative (Negative); PH 5.5 (4.5-8.0); UROBILINOGEN 0.2 E.U./dl (0.0-1.0)
[2024-07-20 15:36] LABS: BACTERIA 1+; RBC 0-2 rbc/hpf (0-2)
[2024-07-20] MEDS ORDERED: Promethazine Hydrochloride 25 MG/ML VIAL IV ONE (16:35)
[2024-07-20] MEDS ORDERED: Phenergan25 MG PO (19:04)
[2024-07-20] MEDS ORDERED: FLAGYL 375375 MG PO (19:04)
== END 2024-07-20 19:07 | disposition home or self-care (01) ==
LOC: ED 13:32
PROVIDERS: Emergency Medicine
DX: K52.9 Noninfective gastroenteritis and colitis, unspecified (principal); R11.0 Nausea; F17.200 Nicotine dependence, unspecified, uncomplicated; F12.90 Cannabis use, unspecified, uncomplicated; Z87.440 Personal history of urinary (tract) infections; Z88.0 Allergy status to penicillin; Z90.49 Acquired absence of other specified parts of digestive tract; Z90.711 Acquired absence of uterus with remaining cervical stump; Z98.890 Other specified postprocedural states

== ENCOUNTER 2024-11-22 16:57 | Emergency (ER) | payer OTHER ==
[~2024-11-22] VITALS: Ht 162.5 cm; Wt 63.5 kg
[~2024-11-22 16:57] MED LIST changes: +FLAGYL 375375 MG PO; +Phenergan25 MG PO
[2024-11-22] MEDS ORDERED: SODIUM CHLORIDE 0.9% 1,000 ML IV ONE (17:25)
[2024-11-22] MEDS ORDERED: MORPHINE Sulfate 2 MG/ML SYR IV ONE (17:40)
[2024-11-22] MEDS ORDERED: IOHEXOL 300 MG/ML 100 ML VIAL IV ONE (17:45)
[2024-11-22 17:46] LABS: BASO % 0.4 % (0.0-1.0); EOS # 0.1 10*3/uL (0.0-0.4); HEMATOCRIT 45.9 % (37.0-47.0); MEAN CELL VOLUME 91.3 fl (81.0-99.0); MEAN CORPUSCULAR HGB 31.2 pg (27.0-31.0); MEAN CORPUSCULAR HGB CONC 34.2 g/dl (33.0-37.0); MEAN PLATELET VOLUME 9.8 fl (9.6-12.3); MONO # 0.6 10*3/uL (0.1-1.0); MONO % 6.1 % (3.0-9.0); NEUT # 6.7 10*3/uL (2.3-7.9); NEUT % 73.8 % (47.0-73.0); PLATELET COUNT AUTOMATED 252 10*3/uL (130-400); RED BLOOD COUNT 5.03 10*6/uL (4.10-5.10); RED CELL DISTRI WIDTH 12.9 % (0-14.5); WHITE BLOOD COUNT 9.1 10*3/uL (4.8-10.8)
[2024-11-22 18:07] LABS: CHLORIDE 106 mmol/L (98-107); POTASSIUM 3.4 mmol/L (3.4-5.1)
[2024-11-22 18:18] LABS: BUN < 5 mg/dl (9-23)
[2024-11-22] MEDS ORDERED: HYDROmorphONE Hydrochloride 0.5 MG/0.5 ML SYRINGE IV ONE (20:45)
[2024-11-22 21:25] VITALS: BP 117/67
== END 2024-11-22 22:16 | disposition home or self-care (01) ==
LOC: ED 16:57
PROVIDERS: Nurse Practitioner Family
DX: K62.89 Other specified diseases of anus and rectum (principal); E87.6 Hypokalemia; Z88.0 Allergy status to penicillin; F17.210 Nicotine dependence, cigarettes, uncomplicated; Z87.442 Personal history of urinary calculi; Z90.49 Acquired absence of other specified parts of digestive tract; Z98.890 Other specified postprocedural states; Z90.711 Acquired absence of uterus with remaining cervical stump; F12.90 Cannabis use, unspecified, uncomplicated

== ENCOUNTER 2025-07-11 11:14 | Emergency (ER) | payer OTHER ==
[~2025-07-11] VITALS: Ht 162.5 cm; Wt 70.3 kg
[2025-07-11 11:20] VITALS: BP 140/70
[2025-07-11] MEDS ORDERED: PREDNISONE20 M1 PO (11:46)
[2025-07-11] MEDS ORDERED: AVPAK AZITHROM250 M1 PO (11:46)
[2025-07-11] MEDS ORDERED: VARENICLINE TART1 MG PO (11:46)
== END 2025-07-11 12:00 | disposition home or self-care (01) ==
LOC: ED 11:14
DX: J40 Bronchitis, not specified as acute or chronic (principal); F17.290 Nicotine dependence, other tobacco product, uncomplicated; I10 Essential (primary) hypertension; Z88.0 Allergy status to penicillin; Z79.899 Other long term (current) drug therapy; Z90.49 Acquired absence of other specified parts of digestive tract

== ENCOUNTER 2025-08-02 10:09 | Emergency (ER) | payer OTHER ==
[~2025-08-02] VITALS: Ht 162.5 cm; Wt 77.1 kg
[~2025-08-02 10:09] MED LIST changes: +AVPAK AZITHROM250 M1 PO; +VARENICLINE TART1 MG PO
[2025-08-02 10:21] VITALS: BP 129/75
[2025-08-02] MEDS ORDERED: METHOCARBAMOL 750 MG TAB PO ONE (10:35)
[2025-08-02] MEDS ORDERED: Dexamethasone Sodium Phospha 20 MG/5 ML VIAL IM ONE (10:35)
[2025-08-02] MEDS ORDERED: Acetaminophen/Hydrocodone 5 MG/325 MG TABLET PO ONE (10:35)
[2025-08-02] MEDS ORDERED: NAPROSYN500 MG PO (10:40)
[2025-08-02] MEDS ORDERED: HYDROCODONE-AC1 EAC1 PO (10:40)
[2025-08-02] MEDS ORDERED: METHOCARBAMOL750 M1 PO (10:40)
[2025-08-02] MEDS ORDERED: PREDNISONE20 M1 PO (10:40)
== END 2025-08-02 10:59 | disposition home or self-care (01) ==
LOC: ED 10:09
DX: S16.1XXA Strain of muscle, fascia and tendon at neck level, initial encounter (principal); M54.6 Pain in thoracic spine; F17.200 Nicotine dependence, unspecified, uncomplicated; Z88.0 Allergy status to penicillin; Z79.899 Other long term (current) drug therapy; Z90.710 Acquired absence of both cervix and uterus; Z90.49 Acquired absence of other specified parts of digestive tract; X50.1XXA Overexertion from prolonged static or awkward postures, initial encounter; Y93.89 Activity, other specified; Y92.89 Other specified places as the place of occurrence of the external cause; Y99.8 Other external cause status